=== PATIENT | female | born 1930 | race Caucasian/White ===

== ENCOUNTER 2017-09-12 10:44 | Emergency (ER) | payer OTHER ==
[~2017-09-12] VITALS: Ht 152.4 cm; Wt 64.5 kg
[~2017-09-12 10:44] MED LIST: AMIODARONE HCL100 MG PO; AMIODARONE HCL200 MG PO; AMLODIPINE BES2.5 MG PO; AMLODIPINE BESY10 MG PO; CALCITRIOL0.25 MCG PO; CALCIUM 600 +1 EAC2 PO; CELEXA20 MG PO; CIPRO500 MG PO; CITALOPRAM HBR20 MG PO; CITRACAL-VIT D1 EAC1 PO; CLONIDINE HCL0.1 MG PO; COMPLETE MULTI1 EAC1 PO; COUMADIN2 MG PO; DAILY VITAMIN1 EAC8 PO; DIGITEK125 MCG PO; FOLIC ACID0.8 MG PO; GABAPENTIN100 MG PO; IRON325 M1 PO; KEFLEX250 MG PO; LOPRESSOR50 MG PO; MAGNESIUM250 MG PO; MELATONIN5 M1 PO; METOPROLOL TART50 MG PO; NORTRIPTYLINE H10 MG PO; OMEPRAZOLE20 M2 PO; PAIN RELIEF EX500 MG PO; PRAVASTATIN SOD40 MG PO; PROBIOTIC1 EAC1 PO; PROBIOTIC1 EACH PO; RANITIDINE HCL150 M1 PO; RESTORIL15 MG PO; ROCALTROL0.25 MCG PO; TEMAZEPAM15 MG PO; TYLENOL EXTRA500 MG PO; TYLENOL REGULA325 MG PO; VITAMIN D PO; VITAMIN D1000 INTUN PO; WARFARIN SODIUM2 MG PO; ZESTRIL,PRINIVI10 MG PO
[2017-09-12 11:50] LABS: HEMATOCRIT 34.8 % (36.0-46.0); MCH 28.9 PG (29.0-34.0); MCHC 31.6 G/DL (30.0-36.0); MCV 91.6 FL (83-99); MEAN PLAT.VOLUME 10.3 uM^3 (9.5-12.4); PLATELET COUNT 217 K/uL (156-360); RBC DIS.WIDTH-CV 14.1 % (11.8-14.6); RBC DIS.WIDTH-SD 47.5 % (39-53); WHITE BLOOD COUNT 6.3 K/uL (4.1-10.2)
[2017-09-12 12:00] LABS: CHLORIDE 104 mEq/L (99-109); POTASSIUM 5.1 mEq/L (3.7-5.4); SODIUM 139 mEq/L (136-147)
[2017-09-12 12:02] LABS: GLUCOSE 93 mg/dL (70-99)
[2017-09-12 12:03] LABS: ANION GAP 12 MEQ/L (2-14)
[2017-09-12 12:05] LABS: GFR ESTIMATE (CALCULATED) 21 mL/min/
[2017-09-12 12:06] LABS: UREA NITROGEN (BUN) 37 mg/dL (9-23)
[2017-09-12 13:48] LABS: ADD MIUA? YES; BILIRUBIN NEGATIVE; BLOOD NEGATIVE; COLOR STRAW ((YELLOW)); GLUCOSE (STRIP) NEGATIVE; KETONES NEGATIVE; LEUKOCYTES LARGE; NITRITE NEGATIVE; PROTEIN (STRIP) 30; SPECIFIC GRAVITY 1.006 (1.000-1.030); UROBILINOGEN 0.2 MG/DL (0.2-1.0)
[2017-09-12 13:57] LABS: BACTERIA 1+ /HPF; EPITHELIAL CELLS RARE /HPF; MUCUS TRACE /LPF; RED BLOOD CELLS 15-20 /HPF (0-5); UCUL ADDED? YES; WHITE BLOOD CELLS TNTC /HPF (0-5); WHITE BLOOD CELLS CLUMP RARE /HPF (0-5)
[2017-09-12 14:05] LABS: TROP-I INTERPRETATION NEGATIVE; TROPONIN-I < 0.01 ng/mL (0.0-0.30)
[2017-09-12] MEDS ORDERED: BACTRIM,SEPT1 TABLE1 PO (16:08)
[2017-09-12 16:32] VITALS: BP 157/69
== END 2017-09-12 16:33 | disposition home or self-care (01) ==
LOC: EME 10:44
DX: N39.0 Urinary tract infection, site not specified (principal); R60.0 Localized edema; I12.9 Hypertensive chronic kidney disease with stage 1 through stage 4 chronic kidney disease, or unspecified chronic kidney disease; N18.9 Chronic kidney disease, unspecified; R41.0 Disorientation, unspecified; R42 Dizziness and giddiness; R00.1 Bradycardia, unspecified; Z85.3 Personal history of malignant neoplasm of breast; Z90.12 Acquired absence of left breast and nipple; Z79.01 Long term (current) use of anticoagulants
CPT/HCPCS: 70450; 71020; 80048; 81003; 83880; 84484; 85027; 87086 GA; 93005; 99281; 99284

== ENCOUNTER 2017-09-14 15:35 | Inpatient (IN) | payer OTHER ==
[~2017-09-14] VITALS: Ht 160 cm; Wt 64.1 kg
[~2017-09-14 15:35] MED LIST changes: +BACTRIM,SEPT1 TABLE1 PO
[2017-09-14 16:44] LABS: MCH 29.3 PG (29.0-34.0); MCHC 32.4 G/DL (30.0-36.0); MCV 90.7 FL (83-99); MEAN PLAT.VOLUME 10.1 uM^3 (9.5-12.4); PLATELET COUNT 210 K/uL (156-360); RBC DIS.WIDTH-CV 13.9 % (11.8-14.6); RBC DIS.WIDTH-SD 46.6 % (39-53); RED BLOOD COUNT 3.75 M/uL (3.80-5.20); WHITE BLOOD COUNT 8.7 K/uL (4.1-10.2)
[2017-09-14 16:49] LABS: INTER. NORMALIZED RATIO 2.3; PROTHROMBIN TIME 25.8 SEC (10.2-12.9)
[2017-09-14 16:52] LABS: ADD MIUA? YES; BILIRUBIN NEGATIVE; BLOOD NEGATIVE; COLOR STRAW ((YELLOW)); GLUCOSE (STRIP) NEGATIVE; KETONES NEGATIVE; LEUKOCYTES LARGE; NITRITE NEGATIVE; PROTEIN (STRIP) 30; SPECIFIC GRAVITY 1.006 (1.000-1.030); UROBILINOGEN 0.2 MG/DL (0.2-1.0)
[2017-09-14 16:52] LABS: CHLORIDE 102 mEq/L (99-109); POTASSIUM 4.6 mEq/L (3.7-5.4); PTT 39.1 SEC (25-37); SODIUM 133 mEq/L (136-147)
[2017-09-14 16:54] LABS: GLUCOSE 87 mg/dL (70-99)
[2017-09-14 16:55] LABS: ANION GAP 9 MEQ/L (2-14)
[2017-09-14 16:56] LABS: BACTERIA RARE /HPF; EPITHELIAL CELLS RARE /HPF; MUCUS NONE SEEN /LPF; UCUL ADDED? YES; WHITE BLOOD CELLS TNTC /HPF (0-5)
[2017-09-14 16:58] LABS: GFR ESTIMATE (CALCULATED) 19 mL/min/
[2017-09-14 16:59] LABS: UREA NITROGEN (BUN) 34 mg/dL (9-23)
[2017-09-14] MEDS ORDERED: VITAMIN D31000 UNIT PO (17:16)
[2017-09-14] MEDS ORDERED: AVENTYL,PAMELOR10 MG PO (17:18)
[2017-09-14 21:46] VITALS: BP 168/70; BP 192/84
[2017-09-15 00:39] VITALS: BP 173/82
[2017-09-15 04:10] VITALS: BP 148/65
[2017-09-15 06:07] LABS: INTER. NORMALIZED RATIO 2.5; PROTHROMBIN TIME 28.8 SEC (10.2-12.9)
[2017-09-15 07:35] VITALS: BP 96/54
[2017-09-15 12:00] VITALS: BP 90/50
[2017-09-15 13:20] LABS: BASOPHIL COUNT 0.1 K/uL (0-0.1); EOSINOPHIL (%) 0.4 % (0-5); HEMATOCRIT 29.2 % (36.0-46.0); IMMATURE GRANULOCYTE (%) 1.8 % (0.0-0.7); IMMATURE GRANULOCYTE COUNT 0.2 K/uL; INSTRUMENT ABS NEUTROPHIL CT 7.6 K/uL; LYMPHOCYTE COUNT 0.9 K/uL (1.0-2.8); MCH 28.4 PG (29.0-34.0); MCHC 31.2 G/DL (30.0-36.0); MCV 91.3 FL (83-99); MEAN PLAT.VOLUME 10.9 uM^3 (9.5-12.4); MONOCYTE (%) 10.9 % (3-12); MONOCYTE COUNT 1.1 K/uL (0-0.8); NEUTROPHIL (%) 76.8 % (45-76); NEUTROPHIL COUNT 7.6 K/uL (1.8-6.4); PLATELET COUNT 241 K/uL (156-360); RBC DIS.WIDTH-CV 13.6 % (11.8-14.6); RBC DIS.WIDTH-SD 45.1 % (39-53)
[2017-09-15 13:28] LABS: ANION GAP 12 MEQ/L (2-14); CHLORIDE 104 MEQ/L (99-109); GFR ESTIMATE (CALCULATED) 18 mL/min/; POTASSIUM 4.8 MEQ/L (3.7-5.4); SAMPLE HEMOLYSIS CHECK 0; SAMPLE ICTERIC CHECK 0; SAMPLE LIPEMIA CHECK 0; SODIUM 138 MEQ/L (136-147); UREA NITROGEN (BUN) 35 mg/dL (9-23)
[2017-09-15] MEDS ORDERED: COUMADIN1 MG PO (13:32)
[2017-09-15] MEDS ORDERED: METOPROLOL TART25 MG PO (13:33)
[2017-09-15 13:35] LABS: GLUCOSE 132 mg/dL (70-99)
[2017-09-15 15:09] LABS: HEMATOCRIT 28.6 % (36.0-46.0); MCH 28.8 PG (29.0-34.0); MCHC 31.5 G/DL (30.0-36.0); MCV 91.4 FL (83-99); MEAN PLAT.VOLUME 10.3 uM^3 (9.5-12.4); PLATELET COUNT 236 K/uL (156-360); RBC DIS.WIDTH-CV 13.8 % (11.8-14.6); RED BLOOD COUNT 3.13 M/uL (3.80-5.20); WHITE BLOOD COUNT 10.7 K/uL (4.1-10.2)
[2017-09-15 16:48] VITALS: BP 116/53
[2017-09-15 19:23] VITALS: BP 120/60
[2017-09-16] VITALS (8 sets, daily range): BP systolic 83–125; BP diastolic 44–68
[2017-09-16 05:47] LABS: BASOPHIL COUNT 0.1 K/uL (0-0.1); EOSINOPHIL (%) 0.9 % (0-5); EOSINOPHIL COUNT 0.1 K/uL (0-0.3); HEMATOCRIT 24.5 % (36.0-46.0); IMMATURE GRANULOCYTE (%) 2.1 % (0.0-0.7); IMMATURE GRANULOCYTE COUNT 0.2 K/uL; LYMPHOCYTE COUNT 1.4 K/uL (1.0-2.8); MCH 29.7 PG (29.0-34.0); MCHC 32.2 G/DL (30.0-36.0); MCV 92.1 FL (83-99); MEAN PLAT.VOLUME 10.6 uM^3 (9.5-12.4); MONOCYTE (%) 14.1 % (3-12); MONOCYTE COUNT 1.4 K/uL (0-0.8); NEUTROPHIL (%) 68.8 % (45-76); PLATELET COUNT 188 K/uL (156-360); RBC DIS.WIDTH-CV 14.1 % (11.8-14.6); RBC DIS.WIDTH-SD 47.6 % (39-53); RED BLOOD COUNT 2.66 M/uL (3.80-5.20); WHITE BLOOD COUNT 10.1 K/uL (4.1-10.2)
[2017-09-16 06:00] LABS: INTER. NORMALIZED RATIO 3.4; PROTHROMBIN TIME 39.1 SEC (10.2-12.9)
[2017-09-16 06:19] LABS: ANION GAP 7 MEQ/L (2-14); CHLORIDE 102 MEQ/L (99-109); GFR ESTIMATE (CALCULATED) 13 mL/min/; GLUCOSE 155 mg/dL (70-99); POTASSIUM 4.6 MEQ/L (3.7-5.4); SAMPLE HEMOLYSIS CHECK 0; SAMPLE ICTERIC CHECK 0; SAMPLE LIPEMIA CHECK 0; SODIUM 135 MEQ/L (136-147); UREA NITROGEN (BUN) 48 mg/dL (9-23)
[2017-09-16 12:22] LABS: HEMATOCRIT 24.1 % (36.0-46.0); MCV 91.6 FL (83-99)
[2017-09-16 15:08] LABS: HEMATOCRIT 23.2 % (36.0-46.0); MCV 92.1 FL (83-99)
[2017-09-17 03:37] VITALS: BP 128/60
[2017-09-17 07:10] VITALS: BP 124/74
[2017-09-17 07:24] LABS: BASOPHIL COUNT 0.1 K/uL (0-0.1); EOSINOPHIL (%) 1.8 % (0-5); EOSINOPHIL COUNT 0.1 K/uL (0-0.3); HEMATOCRIT 23.2 % (36.0-46.0); IMMATURE GRANULOCYTE (%) 2.3 % (0.0-0.7); IMMATURE GRANULOCYTE COUNT 0.2 K/uL; INSTRUMENT ABS NEUTROPHIL CT 5.3 K/uL; LYMPHOCYTE COUNT 1.4 K/uL (1.0-2.8); MCH 29.6 PG (29.0-34.0); MCHC 31.5 G/DL (30.0-36.0); MCV 93.9 FL (83-99); MEAN PLAT.VOLUME 10.6 uM^3 (9.5-12.4); MONOCYTE (%) 12.4 % (3-12); NEUTROPHIL (%) 65.9 % (45-76); NEUTROPHIL COUNT 5.3 K/uL (1.8-6.4); PLATELET COUNT 182 K/uL (156-360); RBC DIS.WIDTH-SD 47.9 % (39-53); RED BLOOD COUNT 2.47 M/uL (3.80-5.20)
[2017-09-17 07:35] LABS: ANION GAP 6 MEQ/L (2-14); CHLORIDE 110 MEQ/L (99-109); POTASSIUM 4.8 MEQ/L (3.7-5.4); SAMPLE HEMOLYSIS CHECK 0; SAMPLE ICTERIC CHECK 0; SAMPLE LIPEMIA CHECK 0; SODIUM 139 MEQ/L (136-147)
[2017-09-17 07:50] LABS: GFR ESTIMATE (CALCULATED) 20 mL/min/; UREA NITROGEN (BUN) 38 mg/dL (9-23)
[2017-09-17 07:52] LABS: GLUCOSE 111 mg/dL (70-99)
[2017-09-17 08:20] LABS: INTER. NORMALIZED RATIO 1.4; PROTHROMBIN TIME 15.5 SEC (10.2-12.9)
[2017-09-17 11:45] VITALS: BP 134/76
[2017-09-17 15:35] VITALS: BP 115/53
[2017-09-17 15:42] LABS: MCV 94.5 FL (83-99)
[2017-09-17 20:22] VITALS: BP 103/58
[2017-09-18] VITALS (8 sets, daily range): BP systolic 94–154; BP diastolic 53–72
[2017-09-18 07:23] LABS: INTER. NORMALIZED RATIO 1.1; PROTHROMBIN TIME 12.8 SEC (10.2-12.9)
[2017-09-18 07:38] LABS: EOSINOPHIL (%) 0.8 % (0-5); EOSINOPHIL COUNT 0.1 K/uL (0-0.3); HEMATOCRIT 23.9 % (36.0-46.0); IMMATURE GRANULOCYTE (%) 1.6 % (0.0-0.7); IMMATURE GRANULOCYTE COUNT 0.2 K/uL; INSTRUMENT ABS NEUTROPHIL CT 11.5 K/uL; LYMPHOCYTE COUNT 0.9 K/uL (1.0-2.8); MCH 29.1 PG (29.0-34.0); MCV 94.1 FL (83-99); MEAN PLAT.VOLUME 10.3 uM^3 (9.5-12.4); MONOCYTE (%) 10.7 % (3-12); MONOCYTE COUNT 1.5 K/uL (0-0.8); NEUTROPHIL (%) 80.4 % (45-76); NEUTROPHIL COUNT 11.5 K/uL (1.8-6.4); PLATELET COUNT 225 K/uL (156-360); RBC DIS.WIDTH-CV 14.4 % (11.8-14.6); RBC DIS.WIDTH-SD 48.9 % (39-53); RED BLOOD COUNT 2.54 M/uL (3.80-5.20); WHITE BLOOD COUNT 14.3 K/uL (4.1-10.2)
[2017-09-18 07:48] LABS: ANION GAP 7 MEQ/L (2-14); CHLORIDE 107 MEQ/L (99-109); GLUCOSE 137 mg/dL (70-99); POTASSIUM 4.7 MEQ/L (3.7-5.4); SAMPLE HEMOLYSIS CHECK 0; SAMPLE ICTERIC CHECK 0; SAMPLE LIPEMIA CHECK 0; SODIUM 138 MEQ/L (136-147); UREA NITROGEN (BUN) 30 mg/dL (9-23)
[2017-09-18 07:50] LABS: GFR ESTIMATE (CALCULATED) 27 mL/min/
[2017-09-19 03:15] VITALS: BP 110/59
[2017-09-19 08:14] VITALS: BP 139/69
[2017-09-19 11:02] VITALS: BP 116/64
[2017-09-19 15:30] VITALS: BP 134/66
[2017-09-19 19:25] VITALS: BP 139/68
[2017-09-19 23:35] VITALS: BP 136/68
[2017-09-20 03:20] VITALS: BP 123/58
[2017-09-20 07:45] LABS: HEMATOCRIT 22.2 % (36.0-46.0); MCV 92.9 FL (83-99)
[2017-09-20 07:55] VITALS: BP 142/83
[2017-09-20 08:03] LABS: ANION GAP 12 MEQ/L (2-14); CHLORIDE 100 MEQ/L (99-109); GFR ESTIMATE (CALCULATED) 20 mL/min/; GLUCOSE 157 mg/dL (70-99); SAMPLE HEMOLYSIS CHECK 0; SAMPLE ICTERIC CHECK 0; SAMPLE LIPEMIA CHECK 0; SODIUM 134 MEQ/L (136-147); UREA NITROGEN (BUN) 35 mg/dL (9-23)
[2017-09-20 12:15] VITALS: BP 146/65
[2017-09-20] MEDS ORDERED: HYOSCYAMINE0.125 M2 SL (13:39)
[2017-09-20] MEDS ORDERED: ATIVAN0.5 MG PO (13:40)
[2017-09-20] MEDS ORDERED: AUGMENTIN875 MG PO (13:40)
[2017-09-20] MEDS ORDERED: MORPHINE CON20 MG/M1 PO (13:40)
[2017-09-20] MEDS ORDERED: CARDIZEM CD,CA180 MG PO (13:59)
[2017-09-20] MEDS ORDERED: FUROSEMIDE20 MG PO (14:00)
[2017-09-20 16:35] VITALS: BP 127/57
[2017-09-20 23:10] VITALS: BP 106/49
[2017-09-21 08:05] VITALS: BP 127/60
[2017-09-21] MEDS ORDERED: VALIUM5 MG PO (10:20)
== END 2017-09-21 12:15 | disposition hospice, home (50) | DRG 604 ==
LOC: EME 15:35 → EDOF 20:32 → 2EASTP 20:32 → ENRESERV 20:37 → 2EASTP 21:24
PROVIDERS: Emergency Medicine; Family Medicine; Internal Medicine; Physician Assistant Medical
DX: S80.12XA Contusion of left lower leg, initial encounter (principal); J69.0 Pneumonitis due to inhalation of food and vomit; I48.0 Paroxysmal atrial fibrillation; W18.30XA Fall on same level, unspecified, initial encounter; Y92.009 Unspecified place in unspecified non-institutional (private) residence as the place of occurrence of the external cause; N39.0 Urinary tract infection, site not specified; I35.1 Nonrheumatic aortic (valve) insufficiency; N18.4 Chronic kidney disease, stage 4 (severe); M79.7 Fibromyalgia; F03.90 Unspecified dementia, unspecified severity, without behavioral disturbance, psychotic disturbance, mood disturbance, and anxiety; R29.6 Repeated falls; E87.1 Hypo-osmolality and hyponatremia; Z66 Do not resuscitate; K59.00 Constipation, unspecified; I12.9 Hypertensive chronic kidney disease with stage 1 through stage 4 chronic kidney disease, or unspecified chronic kidney disease; I09.9 Rheumatic heart disease, unspecified; I27.20 Pulmonary hypertension, unspecified; R26.89 Other abnormalities of gait and mobility; Z51.5 Encounter for palliative care; E87.70 Fluid overload, unspecified; D62 Acute posthemorrhagic anemia; J98.01 Acute bronchospasm; J18.9 Pneumonia, unspecified organism; R09.02 Hypoxemia; E78.5 Hyperlipidemia, unspecified; I48.92 Unspecified atrial flutter; K21.9 Gastro-esophageal reflux disease without esophagitis; Z79.01 Long term (current) use of anticoagulants; Z86.73 Personal history of transient ischemic attack (TIA), and cerebral infarction without residual deficits; Z79.899 Other long term (current) drug therapy; Z87.440 Personal history of urinary (tract) infections; Z85.3 Personal history of malignant neoplasm of breast; Z90.10 Acquired absence of unspecified breast and nipple; Z91.81 History of falling; Z82.49 Family history of ischemic heart disease and other diseases of the circulatory system; Z82.3 Family history of stroke
CPT/HCPCS: 70450; 71010; 71020; 73030; 73502; 73552; 73700; 73721; 74000; 74176; 80048; 80048 91; 81003; 83605; 83880; 84484; 85014; 85018; 85025; 85027; 85610; 85730; 86850; 86900; 86901; 86920; 87086; 87086 GA; 93005; 93306; 94640; 94640 76; 94799; 99202; 99281; 99284; 99285; J0696; J1170; J1940; J2310; J3430; J7030; J7040; J7050